=== PATIENT | female | born 1995 | race Two or more races ===

== ENCOUNTER 2017-04-10 03:09 | Inpatient (IN) | payer SELFPAY ==
[2017-04-10] VITALS (9 sets, daily range): BP systolic 106–139; BP diastolic 54–87; Ht 157.5 cm; Wt 66.7 kg
[~2017-04-10] VITALS: Ht 157.5 cm; Wt 66.7 kg
[~2017-04-10 03:09] MED LIST: ACETAMINOPHEN325 MG PO; HYDROCODON-ACE1 EAC7 PO; HYDROCODONE-APA1 TAB PO; IBUPROFEN600 MG PO; PRENATAL COMPLE1 TAB PO
[2017-04-10 03:34] LABS: HEMOGLOBIN 10.4 g/dL (12-16); MCH 28.7 pg (26.0-34.0); MCHC 32.5 g/dL (31.0-37.0); MCV 88.2 fL (80.0-100.0); MEAN PLATELET VOLUME 10.1 fL (7.4-10.4); RBC 3.63 10x6/uL (4.00-5.40); WBC 12.9 10x3/uL (4.8-10.8)
--- NOTE | 2017-04-10 05:41 | NUR ---
FUNDUS FIRM AT UMBILICUS WITH MIN LOCIA
--- NOTE | 2017-04-10 06:11 | NUR ---
RECEIVED FROM RECOVERY AWAKE AND ORIENTED. REPORT GIVEN FROM RECOVERY NURSE. PT. UNABLE TO MOVE LOWER EXTREMITIES. SCDS CONNECTED AND FUNCTIONAL. ABD. DRESSING DRY AND INTACT. LOCHIA RUBRA SCANT. PT. RATES ABD. DISCOMFORT A 6 OF 10 ON PAIN SCALE. IV OF LR WITH 20U PITOCIN ADDED HUNG AT 125CC/HR. VIA PUMP.
--- NOTE | 2017-04-10 06:17 | NUR ---
DILAUDID ELEMENTARY PRINCIPAL CONNECTED AND PT. INSTRUCTED ON USE. PT. ACTIVATES BOLUS AT THIS TIME. FOB SLEEPING ON SOFA. PT. REQUESTING ICE CHIPS. DUONG HYATT.
--- NOTE | 2017-04-10 06:35 | NUR ---
ICE CHIPS PROVIDED TO PT. ICE CAP APPLIED TO ABD. INCISION AREA. DRESSING REMAINS DRY AND INTACT. 400CC EMPTIED FROM TAYLOR CATH. METER AND BAG. PT. REQUESTING THAT THIS NURSE AWAKEN FOB FOR HER. PT. HAD CALLED NUMEROUS TIMES FOR HIM WITHOUT HIM AROUSING. FOB AWAKENED FOR PT. SHE DESIRES HER CELL PHONE. AWAKE AND ORIENTED.
--- NOTE | 2017-04-10 07:00 | NUR ---
REPORT TO A-P SHIFT.
--- NOTE | 2017-04-10 07:35 | NUR ---
PATIENT REPOSITIONED FOR COMFORT. BLUE PAPER PADS CHANGED. HER BLEEDING IS MODERATE. FUNDUS IS FIRM AND MIDLINE AT THE UMBILICUS. HER TAYLOR CATHETER IS PATENT TO THE BEDSIDE DRAINAGE BAG. SHE IS RATING HER PAIN AN 8. TORADOL GIVEN FOR INCREASED PAIN CONTROL. ROOM TEMPERATURE ADJUSTED FOR HER COMFORT. CLEAR LIQUIDS PROVIDED. NO BOWEL SOUNDS HEARD. LUNGS ARE CLEAR, HR REGULAR WITHOUT MURMUR. IVF INFUSING PER ORDERS IT PROGRAM AUDITOR IN USE. SHE DEMONSTRATES UNDERSTANDING OF USE AND STATES THAT SHE IS PRESSING IT WHEN IT LIGHTS UP GREEN. SHE VOICES CONCERN FOR FOB WELLNESS, HE IS ILL WITH PRESUMED PANCREASE TROUBLES. ADVISED THEM TO SEE A DOCTOR.
--- NOTE | 2017-04-10 08:40 | NUR ---
PATIENT IS AWAKE AND ALERT, SITTING UP IN HER BED 60 DEGREES LOOKING AT HER CELL PHONE. THE FOB IS SLEEPING ON THE COUCH AT THE BEDSIDE. SHE IS WITHOUT NEEDS. BLEEDING IS SMALL TO MODERATE. URINE PATENT TO TAYLOR CATHETER. REPORTED TO HER THE INFANTS CONDITION TOLD TO ME BY THE NURSERY NURSE. SHE WAS APPRECIATIVE. I TOOK A COUPLE OF PICTURES OF FOR HER ON HER CELL PHONE. SHE WAS VERY APPRECIATIVE. SHE IS SLOWLY DRINKING HER CLEAR LIQUIDS. DENIES NAUSEA.
--- NOTE | 2017-04-10 09:56 | NUR ---
ROLLOFF TRUCK DRIVER IN TALKING WITH THE EMOB AND FOB. NO NEEDS NOTED AT THIS TIME.
[2017-04-10 12:13] LABS: BASOPHILS 0.1 % (0-2); EOSINOPHILS 0.1 % (0-7); HEMATOCRIT 30.7 % (36.0-48.0); HEMOGLOBIN 10.1 g/dL (12-16); IMMATURE GRANULOCYTES 0.4 % (0-5); LYMPHOCYTES 13.3 % (15-50); MCH 29.1 pg (26.0-34.0); MCHC 32.9 g/dL (31.0-37.0); MCV 88.5 fL (80.0-100.0); MEAN PLATELET VOLUME 10.2 fL (7.4-10.4); MONOCYTES 6.2 % (2-11); NEUTROPHILS 79.9 % (40-80); PLATELET COUNT 240 10x3/uL (130-400); RBC 3.47 10x6/uL (4.00-5.40); WBC 10.4 10x3/uL (4.8-10.8)
--- NOTE | 2017-04-10 19:22 | NUR ---
PATIENT REPOSITIONED FOR COMFORT. PERIPADS CHANGED. HER BLEEDING REMAINS SMALL TO MODERATE. IVF INFUSING TO THE LEFT HAND. IV ABTS INITIATED. FOB AT THE BEDSIDE HE WILL BE LEAVING THIS EVENING TO WORK. MOB GIVEN CREAM OF CHICKEN SOUP. SHE HAS TAKEN IN CLEAR LIQUIDS ALL DAY WITHOUT C/O NAUSEA. CALL LIGHT IS WITHIN REACH. MONITORING.
--- NOTE | 2017-04-10 20:00 | NUR ---
ASSESSMENT AND VS COMPLETE. PT SITTING UP IN BED DRINKING APPLE JUICE. REPORTS SHE HAS BEEN SWEATING SINCE RECIEVING TORADOL FOR PAIN. ROOM TEMP LOWERED AND COOL WASHCLOTH PROVIDED. PT DENIES PASSING GAS AT THIS TIME. FUNDUS MASSAGED. FIRM AND MIDLINE 1 FB BELOW UMBILLICUS. SCANT LOCHIA WITH NO CLOTS NOTED. KYMBERLY PADS CHANGED. TAYLOR CATH IN PLACE AND DRAINING. OUTPUT NOTED. SCDs IN PLACE BILATERALLY. HOMANS SIGN NEG BILATERALLY. NO EDEMA PRESENT. DISCUSSED PAIN CONTROL OPTIONS. REPORTS PAIN IS WELL CONTROLLED WITH CURRENT MEDICATIONS. NO OTHER QUESTIONS OR CONCERNS VOICED. CALL LIGHT IN REACH. BED LOW. SR UP X2.
--- NOTE | 2017-04-10 20:30 | NUR ---
ICE WATER GIVEN REQUESTED.
--- NOTE | 2017-04-10 22:45 | NUR ---
DR. CHILEL ON UNIT. NOTIFIED THAT PT HAS ASKED IF SHE CAN START AMBULATING AND HAVE TAYLOR DC'D AND IV SALINE LOCKED. DR. CHILEL STATES YES. NEW ORDERS TO [facility] [employer].
--- NOTE | 2017-04-10 22:56 | NUR ---
PT NB AT THIS TIME. WILL CALL WHEN DONE FOR TAYLOR REMOVAL AND IVF REMOVAL.
--- NOTE | 2017-04-11 00:12 | NUR ---
TAYLOR CATH D/C'D WITH CATH TIP INTACT. PT CLEANED UP. SMALL LOCHIA RUBRA NOTED WITH NO CLOTS. FUNDUS REMAINS FIRM. CLEAN PERIPADS PLACED. PIV SL AT THIS TIME. SANDWICH TRAY PROVIDED PER PT REQUEST. PT DENIES PAIN OR FURTHER NEEDS CURRENTLY. ADV PT TO CALL WHEN SHE FEELS THE URGE TO VOID FOR ASSISTANCE. PT VERBALIZED UNDERSTANDING.
--- NOTE | 2017-04-11 02:00 | NUR ---
RN to room to administer medications. Pt requesting prn pain med. See EMAR for digital media specialist. Pt resting with eyes closed while nurse in room. Denies any other needs or concerns. Instructed to call for assistance with ambulating. Denies urge to void at this time. Lights dimmed. Call light in reach. Bed low. SR upx2.
--- NOTE | 2017-04-11 02:47 | NUR ---
Pt holding NB in arms. Denies pain or discomfort. No needs voiced.
--- NOTE | 2017-04-11 03:55 | NUR ---
Pt resting with eyes closed. C/L in reach. Bed low. SR upx2.
--- NOTE | 2017-04-11 04:00 | NUR ---
IV saline locked.
--- NOTE | 2017-04-11 04:15 | NUR ---
Pt assisted up to bathroom with slow steady gait. Pt voided 200 ml clear yellow urine without difficulty. Abilio care performed. Given/explained abilio pads and mesh panties. Pt washed hands and ambulated back to bed. Blue underpads changed. Pt back into bed. Call light in reach. Bed low. SR upx2. Fresh ice water provided.
--- NOTE | 2017-04-11 04:44 | NUR ---
PRN PAIN MED ADMINISTERED REQUESTED. SEE EMAR.
[2017-04-11 04:45] VITALS: BP 104/57
--- NOTE | 2017-04-11 04:55 | NUR ---
QUARRY EXTRACTION WORKER DC'D. WASTED 4MG DILAUDED QUARRY EXTRACTION WORKER MEDICATION IN [facility] WITH WITTNESS.
--- NOTE | 2017-04-11 06:00 | NUR ---
Pt resting with eyes closed. No needs observed. C/L in reach. Bed low. SR upx2.
[2017-04-11 06:15] LABS: RAPID PLASMA REAGIN Non Reactive (Non Reactive)
[2017-04-11 06:42] LABS: BASOPHILS 0.1 % (0-2); EOSINOPHILS 0.4 % (0-7); HEMATOCRIT 27.8 % (36.0-48.0); HEMOGLOBIN 8.9 g/dL (12-16); IMMATURE GRANULOCYTES 0.5 % (0-5); LYMPHOCYTES 13.5 % (15-50); MCH 28.7 pg (26.0-34.0); MCV 89.7 fL (80.0-100.0); MEAN PLATELET VOLUME 10.1 fL (7.4-10.4); NEUTROPHILS 79.5 % (40-80); PLATELET COUNT 237 10x3/uL (130-400); RDW 14.4 % (11.5-14.5); WBC 10.6 10x3/uL (4.8-10.8)
--- NOTE | 2017-04-11 07:10 | NUR ---
THIS RN TO BEDSIDE FOR SHIFT ASSESSMENT. PT CURRENTLY LYING AWAKE IN BED WATCHING TV. PAIN AND NEEDS ASSESSED. PT REPORTS ABD PRESSURE/BLOATING AND INCISIONAL PAIN THAT SHE RATES 7/10. TEACHING PROVIDED IN REGARDS TO AMBUALTING TO RELIEVE BLOATING PAIN AND VOIDING EVERY 2 HRS TO DECREASE LOWER ABD PAIN. PT RECEPTIVE TO TEACHING. V/S STABLE. SEE FLOWSHEET. SALINE LOCK TO LEFT FOREARM. BREATH SOUNDS CL\=, ABD,TENDER TO TOUCH, MILD DISTENTION NOTED. PT DENIES PASSING FLATUS OF YET. LOW TRANSVERSE INCISION C/D/I W/DRESSING. SMALL LOCHIA RERPORTED. PEDAL PULSES PRESENT X 2. NO EDEMA NOTED TO LOWER EXTREMITIES. NORCO OFFERED. PT REQUEST TO WAIT UNTIL SHE HAS HAD BREAKFAST. TRASH REMOVED FROM ROOM. PT INFORMED THAT HOUSEKEEPING WILL BE TO PT'S ROOM TO MOP THE FLOOR. NEEDS REASSESSED. PT REQUEST CHICKEN BROTH. CHICKEN BROTH SERVED. PT DENIES FURTHER NEEDS AT THIS TIME.
[2017-04-11 07:13] VITALS: BP 100/56
--- NOTE | 2017-04-11 07:30 | NUR ---
BREAKFAST TRAY SERVED.
--- NOTE | 2017-04-11 08:00 | NUR ---
ROUNDS MADE. PT REMAINS IN BED AA&O X4 WATCHING TV. PT HAS FINISHED EATING HER BREAKFAST. PAIN MEDICATION OFFERED. PT ACCEPTS. NORCO10/325MG ONE TAB GIVEN. PT ENCOURAGED TO GET UP TO VOID. PT OOB W/OUT ASSISTANCE. AMBULTORY TO BR. VOIDS 300ML. PINK PAD PLACED W/CHUX ON BED. PT RETURNS TO BED. DENIES FURTHER NEEDS. BREAKFAST TRAY REMOVED FROM ROOM. BED LOW, SIDE RAILS UP X 2. CALL LIGHT AND PHONES AT PT'S SIDE.
--- NOTE | 2017-04-11 08:18 | NUR ---
INFANT TO ROOM AT THIS TIME.
--- NOTE | 2017-04-11 08:19 | NUR ---
DR CHILEL ON UNIT.
--- NOTE | 2017-04-11 08:59 | NUR ---
ROUNDS MADE. PT AWAKE IN BED VISITING W/GUEST. PAIN AND NEEDS ASSESSED. PT REPORTS PAIN 01/02. DENIES NEEDS AT PRESENT.
--- NOTE | 2017-04-11 10:00 | NUR ---
this rn to bedside antibiotic administration per md orders. iv site flushed w/5ml ns. site wnl. primary line reconnected to iv site. primary set to 25ml/hr. merrrem 1gm ivpb initiated at 200ml/hr to infuse over 30mins. pt denies needs at present.
--- NOTE | 2017-04-11 10:25 | NUR ---
nbn nurse reports pt's iv site needs assessment. this rn to bedside. pt's iv site to left hand swollen. iv site has infiltrated. iv infusion stopped. iv dc'd intact. bandaid placed oversite. iv restarted to rt forearm w/ guage cath. primary line restarted at 25ml/hr. ivpb restarted at 200ml/hr. site w/out redness or swelling.
--- NOTE | 2017-04-11 10:50 | NUR ---
IVPB COMPLETED. IV SITE SALINE LOCKED. PT HOLDING AT THIS TIME. REPORTS INFANT HAS COMPLETED FEEDING. PT TO BE TRANSFERED TO [facility] SO BILI LIGHTS MAY BE PLACED IN PT'S ROOM FOR BILI LIGHT THERAPY.
--- NOTE | 2017-04-11 11:15 | NUR ---
PT TRANSFERED AMBULATORY TO [facility]. ORIENTED TO ROOM,PHONE AND CALL LIGHT. SIG OTHER IN ROOM W/PT. INFANT PLACED UNDER BILI LIGHTS PER G DANIAL,RN NBN NURSE.
[2017-04-11 11:30] VITALS: BP 106/59
--- NOTE | 2017-04-11 12:50 | NUR ---
Godwin BARROW RN TO ROOM TO CHECK ON BABY.WHILE AT BEDSIDE, PT'S PAIN AND NEEDS ASSESSED PER Godwin BARROW RN. PT DENIES NEEDS. FACE SCALE USED FOR PAIN ASSESSMENT. 01/02. NO PAIN INTERVENTIONS REQUESTED AT THIS TIME.
--- NOTE | 2017-04-11 14:00 | NUR ---
ROUNDS MADE. PT SITTING UP IN BED AWAKE WATCHING TV. RATES PAIN 01/02. DENIES NEEDS AT PRESENT. DECLINES OFFERS TO BRING HER ANYTHING TO EAT OR DRINK. PT DENIES BEING UP TO VOID SINCE TRANSFER. PT ENCOURAGED TO GET UP TO VOID AT THIS TIME. PT CONTINUES TO DENY PASSING FLATUS OF YET.
--- NOTE | 2017-04-11 15:57 | NUR ---
ROUNDS MADE. PT LYING AWAKE IN BED WATCHING TV. SMILING AND CHEERFUL. REPORTS SHE HAS BEEN ABLE TO PASS GAS. PAIN AND NEEDS ASSESSED. PT REPORTS PAIN 01/02. DECLINES OFFERS TO BRING HER ANY THING TO EAT OR DRINK AT THIS TIME. RETURNED TO ROOM AT THIS TIME PER NBN NURSE TO REMAIN UNDER BILI LIGHTS. DENIES NEEDING PAIN MEDICATION AT THIS TIME.
--- NOTE | 2017-04-11 17:27 | NUR ---
PT RINGS CALL LIGHT. THIS RN TO ROOM. PT NOW REQUESTING PAIN MEDICATION FOR INCISIONAL PAIN 06/04. NORCO 10/325MG ONE TAB GIVEN. PT HAS DINNER TRAY AND A DRINK. NO ADDITIONAL NEEDS VOICED AT THIS TIME. SIG OTHER AT BEDSIDE.
--- NOTE | 2017-04-11 17:50 | NUR ---
THIS RN TO BEDSIDE. SALINE LOCK FLUSHED W/5ML NS. SITE WNL W/OUT REDNESS OR SWELLING. PRIMARY LINE CONNECTED TO PUMP. RATE SET AT 25ML/HR. IVPB ANTIBIOTICS OF MERREM 1GM UP TO INFUSE AT 200ML/HR. PT CONTINUES TO RATE PAIN 06/04. PT ENCOURAGED TO GET UP TO SHOWER SOON AND WALK HALLS TO HELP W/GAS PAIN. PT IS AGREEBLE. SIG OTHER PLACES INFANT IN PT'S ARMS BEFORE LEAVING THE ROOM. NO FURTHER NEEDS VOICED AT THIS TIME.
--- NOTE | 2017-04-11 18:31 | NUR ---
ROUNDS MADE. PT SITTING UP IN BED CHANGING INFANTS DIAPER. PT SMILING AND CHEERFUL. ANTIBIOTICS STILL INFUSING. NO NEEDS VOICED AT THIS TIME.
--- NOTE | 2017-04-11 19:10 | NUR ---
PT SITTING UP IN BED FINISHING TRAY FROM DINNER. DENIES PAIN OR DISCOMFORT. REPORTS PRN PAIN MEDICATION WORKING WELL TO CONTROL PAIN. ASSESSMENT COMPLETE AND VS OBTAINED. IV SALINE LOCKED. IV PATENT. NO S/S INFILTRATION. ENCOURAGED PT TO SHOWER AND AMBULATE AFTER SHOWER. PT VERBALIZES UNDERSTANDING. S/O PRESENT IN ROOM. CALL LIGHT IN REACH. BED LOW. SR UPX2. NO FURTHER NEEDS VOICED.
[2017-04-11 19:12] VITALS: BP 117/67
--- NOTE | 2017-04-11 19:26 | NUR ---
PT IN SHOWER WITH ASSISTANCE OF S/O.
--- NOTE | 2017-04-11 21:49 | NUR ---
Pt request prn pain med for cramping and incisional pain. See EMAR for occupational medicine specialist. Denies any other needs or cocnerns. Reports vag bleeding scant and denies clots.
--- NOTE | 2017-04-11 23:30 | NUR ---
Called to room per pt. Pt finished pumping and has EBM prepared to take to [facility]. No other needs voiced.
--- NOTE | 2017-04-12 01:00 | NUR ---
Ice and cola provided per request.
--- NOTE | 2017-04-12 01:08 | NUR ---
Pt sitting up in bed attempting to breastfeed NB. Medications administered. See EMAR. IV flushes easily. Site patent. No pain/redness/edema to site. Pt continues to report scant lochia. Abd incision unchanged from assessment. Pt reports pain medication effective. Denies any other needs or concerns.
--- NOTE | 2017-04-12 02:15 | NUR ---
IV saline locked.
--- NOTE | 2017-04-12 04:13 | NUR ---
Pt resting with eyes closed. No needs identified. C/L in reach. Bed low. SR upx2.
--- NOTE | 2017-04-12 04:58 | NUR ---
Pt requesting prn pain med. See EMAR. VS obtained. Provided pt with mary per request. Fundus firm and midline 1FB below umbillicus. Scant lochia. Incision well approximated. No s/s infection. Barnum intact. No other needs or concerns voiced. C/L in reach. Bed low. SR upx2.
[2017-04-12 05:00] VITALS: BP 112/59
--- NOTE | 2017-04-12 06:00 | NUR ---
Pt resting with eyes closed.
[2017-04-12 08:05] VITALS: BP 106/60
--- NOTE | 2017-04-12 08:11 | NUR ---
UPON ENTERING ROOM PT IS SITTING UP EATING HER BREAKFAST, DENIES PAIN OR DISCOMFORT AT THIS TIME. ALSO DENIES ANY QUESTIONS OR CONCERNS. INCISION IS CLEAN AND DRY, FUNDUS FIRM AT U/U WITH LIGHT BLEEDING AND PT DENIES ANY CLOTS WITH HER VOIDS. SIDE RAILS UP X 2 WITH PHONE AND CALL LIGHT IN REACH.
--- NOTE | 2017-04-12 10:30 | NUR ---
PT SITTING UP IN BED WITH TO BREAST, DENIES PAIN OR DISCOMFORT. MEROPENEM 1GRAM INFUSING IVPB PER ORDERS, PRIOR TO STARTING ANTIBIOTIC SALINE LOCK FLUSHED EASILY WITH 3ML NS. LARGE CUP OF ICE WATER PROVIDED PER PT REQUEST.
--- NOTE | 2017-04-12 11:05 | NUR ---
IV MEDS COMPLETED, NO MORE IV MEDICATIONS ORDERED, VERIIFED WITH MD PRIOR TO REMOVING SALINE LOCK. REMOVED AT THIS TIME INTACT. PT DENIES ANY NEEDS FOR NURSE. CALL LIGHT WITH IN HER REACH WITH SIDE RAILS UP X 2.
--- NOTE | 2017-04-12 14:18 | NUR ---
PT BONDING WITH INFANT, RATES PAIN/CRAMPING AT 5/10 AND REQUEST MOTRIN ONLY AT THIS TIME CHARTED ON EMAR. STATES UNDERSTANDING THAT WILL NOT BE DISCHARGED UNTIL 7 DAYS OF ANTIBIOTICS HAVE COMPLETED. ROOMING IN INFO GIVEN FOR HER TO READ OVER, ALSO WILL LET NURSE KNOW WHEN SIG OTHER RETURNS SO THAT HER SCRIPTS CAN BE TAKEN TO PHARMACY. SIDE RAILS UP X 2 WITH PHONE AND CALL LIGHT WITH IN HER REACH.
--- NOTE | 2017-04-12 16:00 | NUR ---
CALLED TO ROOM, PT STATES THAT SIG OTHER IS HERE AND REQUEST SCRIPTS TO BE GIVEN TO HIM. PROVIDED WITH WRITTEN SCRIPTS FOR NORCO 10/325MG, MOTRIN 600MG AND AUGMENTIN. PT DENIES PAIN OR DISCOMFORT AT THIS TIME AND VOICES NO NEEDS FOR NURSE. CALL LIGHT IN REACH WITH SIDE RAILS UP X 2.
--- NOTE | 2017-04-12 17:30 | NUR ---
LARGE ICE WATER TAKEN TO ROOM PER REQUEST. IN CRIB AT BEDSIDE. NO OTHER NEEDS AT THIS TIME.
--- NOTE | 2017-04-12 18:34 | NUR ---
SITTING UP IN BED HOLDING . REGULAR DIET AT BEDSIDE. DENIES NEEDING ANYTHING AT THIS TIME. CALL LIGHT IN REACH. TO CALL IF ANYTHING IS NEEDED.
[2017-04-12 19:07] VITALS: BP 118/73
--- NOTE | 2017-04-12 19:07 | NUR ---
PT. LYING ON BACK WITH EYES CLOSED. RESPIRATIONS REGULAR. INFANT SLEEPING AND LYING IN BED BESIDE PT. PT. AWAKENED FOR ASSESSMENT. SKIN WARM AND DRY. FUNDUS FIRM AND LOCHIA RUBRA SCANT. PT. STATES WHEN HER FOB RETURNS TO HOSPITAL SHE WILL START "ROOMING IN".DENIES ANY BOWEL MOVEMENT. INSTRUCTED PT. ON RECOMMENDATION FOR MILK OF MAGNESIA IF NEEDED. PT. STATED UNDERSTANDING. DENIES ANY PAIN IN LEGS. BREATH SOUNDS CLEAR AND BOWEL SOUNDS AUDIBLE.
--- NOTE | 2017-04-12 19:39 | NUR ---
PT. ASLEEP AGAIN AND REMAINS IN BED BESIDE PT. AWAKENED PT. AND ASKED IF THIS NURSE COULD PUT INFANT IN OPEN CRIB. INFORMED PT. THAT SLEEPING IN BED WITH IS DISCOURAGED DUE TO SAFETY CONCERNS. PT. STATED UNDERSTANDING. OFFER TO TAKE TO NBN UNTIL SHE AWAKENS AND PT. AGREEABLE. LIGHTS IN ROOM DIMMED.
--- NOTE | 2017-04-12 21:44 | NUR ---
PT. CALLS AND REPORTS THAT HER SCRIPTS HAVE BEEN DELIVERED TO HER. DISCHARGE INSTRUCTIONS GIVEN TO PT. AND PT. STATES UNDERSTANDING TO ALL. COPIES OF ALL INFORMATION LEFT WITH PT. PT. ALSO HAS DRUG INFORMATION FROM [facility] ON ALL MEDS FILLED. FOB STATES HE WILL GET IBUPROFEN TOMORROW. SHE CURRENTLY HAS PCN SCRIPT AND NORCO. TRASH EMPTIED IN ROOM. PT. SIGNED ROOMING IN PAPERWORK EARLIER IN DAY AND STATES AWARENESS OF POLICY. AGAIN INFORMED THAT MEALS WOULD BE PROVIDED TO HER, ALTHOUGH HER ROOM ASSIGNMENT COULD CHANGE IN AM. PT.STATES UNDERSTANDING.
--- NOTE | 2017-04-14 13:13 | OP ---
PATIENT NAME: GRANT DOLAN MEDICAL RECORD: [id number] :[birth year] LOCATION:[id number] ADMISSION DATE:04/10/17 SURGEON: DERRICK AVILEZ MD DATE OF OPERATION: 04/10/2017 PREOPERATIVE DIAGNOSES: 1. Intrauterine at 36 weeks in active labor. 2. History of previous section. POSTOPERATIVE DIAGNOSES: 1. Intrauterine at 36 weeks in active labor. 2. History of previous section. 3. Suspected chorioamnionitis. PROCEDURE: Repeat low transverse section. SURGEON: Derrick Avilez MD. ESTIMATED BLOOD LOSS: 1000 cc. INTRAVENOUS FLUIDS: Per anesthesia records. SPECIMENS: Placenta and cord for gases. FINDINGS: 1. Viable infant, Apgars 9 at 1 and 9 at 5. 2. Foul smelling, but clear amniotic fluid. 3. Grossly normal adnexa bilaterally. 4. Placenta delivered manually intact, 3-vessel cord noted. COMPLICATIONS: None apparent. PROCEDURE: The patient taken to the operating room where spinal anesthesia was achieved without difficulty. The patient was prepped and draped in normal sterile fashion in the dorsal supine position. Anderson catheter in place and was draining freely and SCDs were functioning normally. At this point, a repeat Pfannenstiel skin incision was made, extended downward to the underlying subcutaneous fat to level of the fascia, which was then excised in the midline and the fascial incision was then extended bilaterally using the Duke scissors. The superior and inferior aspects of the fascial incision were then grasped with Jun clamps times 2, tented upward, and sharply dissected from the underlying rectus muscle. Rectus muscles were then bluntly in the midline and the peritoneum entered sharply using the Metzenbaum scissors. The dissection of the peritoneum was performed carefully using the Metzenbaum scissors. The bladder blade was then placed into the pelvis and a low transverse incision was made, extended superiorly and inferiorly using the Pelosi method. At this point, the 's head was delivered atraumatically followed by the body. Infant was bulb suctioned upon delivery. Cord was clamped times 2, cut, and the was handed to the awaiting nursery team. Cord was then obtained for gases. The uterus was entered and the placenta was then removed manually intact, 3-vessel cord was noted. The uterus was exteriorized and cleared of all clots and debris. Uterine incision was repaired with 0 Vicryl in a running locked fashion times 2. Posterior cul-de-sac was then thoroughly irrigated and the uterus was replaced into the pelvis. Anterior cul-de-sac was then thoroughly irrigated and the uterine incision was noted to be hemostatic. OPERATIVE REPORT [id number] GRANT DOLAN Counts were correct times 2. The fascia was repaired with 0 loop PDS times 1 and the skin repaired with michelle. The patient tolerated the procedure well, transferred to postanesthesia recovery stable without incident. TRANSINT:[id number] Voice Confirmation ID: [id number] DOCUMENT ID: [id number] DERRICK AVILEZ MD at 1311 CC: [id number] DICTATION DATE: 04/10/17 2338 PROJECT ENGINEER CHEMICALS: 04/11/17 0603 ADM IN [facility] [address] [place] [address]
== END 2017-04-12 21:50 | disposition home or self-care (01) | DRG 765 ==
LOC: D.LD 03:09
PROVIDERS: ADMIT Obstetrics & Gynecology
PROC: 10D00Z1 Extraction of Products of Conception, Low, Open Approach (ICD-10-PCS; principal; 2017-04-10 04:14)
DX: O99.824 Streptococcus B carrier state complicating childbirth (principal); O41.1230 Chorioamnionitis, third trimester, not applicable or unspecified; O98.82 Other maternal infectious and parasitic diseases complicating childbirth; Z3A.36 36 weeks gestation of pregnancy; Z37.0 Single live birth; O34.219 Maternal care for unspecified type scar from previous cesarean delivery; O99.334 Smoking (tobacco) complicating childbirth

== ENCOUNTER 2019-11-02 09:54 | Emergency (ER) | payer SELFPAY ==
[~2019-11-02] VITALS: Ht 157.5 cm; Wt 65.9 kg
[2019-11-02 10:18] VITALS: Ht 157.5 cm; Wt 65.9 kg
[2019-11-02] MEDS ORDERED: STERAPRED 5MG 65 M1 PO (10:22)
[2019-11-02] MEDS ORDERED: CLEOCIN HCL300 MG PO ×2 (10:22→12:54)
[2019-11-02] MEDS ORDERED: ULTRAM50 MG PO (10:23)
[2019-11-02 13:15] VITALS: BP 125/74
== END 2019-11-02 13:16 | disposition home or self-care (01) ==
LOC: D.ER 09:54
DX: N75.0 Cyst of Bartholin's gland (principal)

== ENCOUNTER 2019-11-14 20:31 | Inpatient (IN) | payer SELFPAY ==
[~2019-11-14] VITALS: Ht 157.5 cm; Wt 65.8 kg
[~2019-11-14 20:31] MED LIST changes: +CLEOCIN HCL300 MG PO; +STERAPRED 5MG 65 M1 PO; +ULTRAM50 MG PO
[2019-11-14 21:34] LABS: BASOPHILS 0.2 % (0-2); EOSINOPHILS 1.3 % (0-7); HEMATOCRIT 39.8 % (36.0-48.0); HEMOGLOBIN 13.3 g/dL (12-16); IMMATURE GRANULOCYTES 0.3 % (0-5); LYMPHOCYTES 18.4 % (15-50); MCH 31.3 pg (26.0-34.0); MCHC 33.4 g/dL (31.0-37.0); MCV 93.6 fL (80.0-100.0); MEAN PLATELET VOLUME 9.8 fL (7.4-10.4); MONOCYTES 7.5 % (2-11); NEUTROPHILS 72.3 % (40-80); RBC 4.25 10x6/uL (4.00-5.40); RDW 12.9 % (11.5-14.5); WBC 11.3 10x3/uL (4.8-10.8)
[2019-11-14 21:40] LABS: CALC OSMOLALITY 276 mosm/kg (275-300); CALCIUM 8.3 mg/dL (8.5-10.1); CARBON DIOXIDE 30.6 mmol/L (21.0-32.0); CHLORIDE - SERUM 103 mmol/L (98-107); CREATININE - SERUM 0.7 mg/dL (0.6-1.3); GLUCOSE 91 mg/dL (74-106); POTASSIUM - SERUM 3.6 mmol/L (3.5-5.1); SODIUM 139 mmol/L (136-145); UREA NITROGEN 11 mg/dL (7-18); eGFR NON AFRICAN AMERICAN > 90 mL/min (90-120)
[2019-11-14 21:46] LABS: ALBUMIN 3.5 g/dL (3.4-5.0); ALKALINE PHOSPHATASE 95 U/L (46-116); ALT (SGPT) 26 U/L (10-68); BILIRUBIN - TOTAL 0.53 mg/dL (0.2-1.3); MAGNESIUM - SERUM 2.1 mg/dL (1.8-2.4); PLATELET COUNT 287 10x3/uL (130-400); PROTEIN - SERUM 8.1 g/dL (6.4-8.2)
[2019-11-14 22:07] LABS: APPEARANCE HAZY (CLEAR); BILIRUBIN NEGATIVE (NEGATIVE); COLOR YELLOW (YELLOW); GLUCOSE NEGATIVE (NEGATIVE); KETONE NEGATIVE (NEGATIVE); NITRITE NEGATIVE (NEGATIVE); PROTEIN 1+ mg/dL (NEGATIVE); UROBILINOGEN NORMAL (NORMAL)
[2019-11-14 22:08] LABS: RED CELLS - URINE 0-5 /hpf (0-5); WHITE CELLS - URINE >50 /hpf (NEGATIVE)
[2019-11-14 22:09] LABS: BACTERIA MODERATE /hpf (NEGATIVE); EPITHELIAL CELLS 0-5 /hpf (0-5)
[2019-11-14 22:29] VITALS: BP 108/62
[2019-11-15 00:34] VITALS: BP 117/63; BMI 26.6
[2019-11-15 04:22] VITALS: BP 97/60
--- NOTE | 2019-11-15 07:39 | NUR ---
AWAKE AND ALERT. ORIENTED X3. NO C/O AT THIS TIME. LUNGS ARE CLEAR BILATERALLY, NO COUGH NOTED. SKIN IS INTACT WITHOUT REDNESS EXCEPT WOUND TO LABIA. WILL MONITOR. IV TO RIGHT AC IS PATENT WITHOUT REDNESS AT INSERTION SITE. SITTING UP IN BED EATING BREAKFAST. DENIES NEEDS.
[2019-11-15 08:06] VITALS: BP 100/59
--- NOTE | 2019-11-15 09:30 | NUR ---
ATE MOST OF BREAKFAST. UP TO SHOWER WITH SET UP ASSISTANCE. DENIES NEEDS.
[2019-11-15 09:54] VITALS: Ht 157.5 cm; Wt 65.8 kg
[2019-11-15 12:12] VITALS: BP 92/62
[2019-11-15] MEDS ORDERED: TYLENOL W/CODEI1 TAB PO (14:10)
--- NOTE | 2019-11-15 15:32 | NUR ---
DISCHARGED TO HOME AMBULATORY. ALL BELONGINGS WITH PATIENT.
--- NOTE | 2019-11-15 17:03 | MORECARE ---
CASE MANAGEMENT DISCHARGE SUMMARY PATIENT: GRANT DOLAN UNIT: [id number] ADM DATE: 11/14/19 AGE: 24 : [birth year] SEX: F ROOM/BED: D.1213 AUTHOR: ADRIAN SCHUMACHER PHYSICIAN: REFERRING PHYSICIAN: JUAN M VINES MD DATE OF SERVICE: 11/15/19 Discharge Plan Patient Name: GRANT DOLAN Facility: [facility]:[place] : 1995 Planned Disposition: Home Anticipated Discharge Date: Discharge Date: 11/15/2019 Expected LOS: Initial Reviewer: [email or web address] Initial Review Date: 11/15/2019 Generated: 11/15/19 6:03 pm DCPIA - Discharge Planning Initial Assessment Updated by [email or web address]: Jane Jason on 11/15/19 4:56 pm * Is the patient Alert and Oriented? Yes * How many steps to enter\exit or inside your home? * PCP NO PCP * Pharmacy [facility] * Preadmission Environment Home with Family * ADLs Independent * Equipment None * Verbal permission to speak to the caregivers and representatives has been obtained from the patient. Yes * Community resources currently utilized None * Additional services required to return to the preadmission environment? No * Can the patient safely return to the preadmission environment? Yes * Has this patient been hospitalized within the prior 30 days at any hospital? No Patient Name: GRANT DOLAN Page [id number] at 1703 All edits/amendments must be made on the electronic document DICTATION DATE: 11/15/191702 STEWARD/STEWARDESS [employer] CLASS: ALEXX 11/15/19 170 RPT#: [id number] DC DATE:11/15/19 STATUS: DIS IN [facility] [address] [place] [address] END OF REPORT
--- NOTE | 2019-11-15 17:20 | MORECARE ---
CASE MANAGEMENT DISCHARGE SUMMARY PATIENT: GRANT DOLAN UNIT: [id number] ADM DATE: 11/14/19 AGE: 24 : [birth year] SEX: F ROOM/BED: D.1213 AUTHOR: ENDY,DOC PHYSICIAN: REFERRING PHYSICIAN: AAMIR VINES MD DATE OF SERVICE: 11/15/19 Discharge Plan Patient Name: GRANT DOLAN Facility: [facility]:[place] : 1995 Planned Disposition: Home Anticipated Discharge Date: Discharge Date: 11/15/2019 Expected LOS: Initial Reviewer: [email or web address] Initial Review Date: 11/15/2019 Generated: 11/15/19 6:19 pm Comments DCP- Discharge Planning Updated by [email or web address]: Jane Jason on 11/15/19 4:[address] Patient Name: GRANT PADILLA Admission Status: ER Accout number: [id number] Admission Date: 11-14-2019 : 1995 Admission Diagnosis: Attending: Aamir Vines Current LOS: 1 Anticipated DC Date: Planned Disposition: Home Primary Insurance: UNINSURED DISCOUNT PLAN Discharge Planning Comments: CM met with patient to complete initial dc planning assessment. CM educated patient on the CM role and verbal consent given by patient to complete assessment. Patient lives at home with her family where she is independent with her care. At discharge patient plans to return home and feels this is a safe discharge. CM discussed availability of home health, rehab services, and medical equipment. She will have her family drive her home. Patient is uninsured CM looked up medications on [facility] to check cost to see if she could afford medications. Cost of all medications with [facility] card is approximately $50.00. Patient stated that she could afford to get medications. Good RX card given. Patient denied known discharge needs at this time. CM will continue to follow and will assist as needed with dc plans/needs. Pinmaker: Jane Jason DCPIA - Discharge Planning Initial Assessment Updated by [email or web address]: Jane Jason on 11/15/19 4:56 pm * Is the patient Alert and Oriented? Yes * How many steps to enter\exit or inside your home? * PCP NO PCP * Pharmacy [facility] * Preadmission Environment Home with Family * ADLs Independent * Equipment None * Verbal permission to speak to the caregivers and representatives has been obtained from the patient. Yes * Community resources currently utilized None * Additional services required to return to the preadmission environment? No * Can the patient safely return to the preadmission environment? Yes * Has this patient been hospitalized within the prior 30 days at any hospital? No Last DP export: 11/15/19 4:03 p Patient Name: GRANT DOLAN Page [phone] at 1720 All edits/amendments must be made on the electronic document DICTATION DATE: 11/15/191718 MENTAL RETARDATION NURSE: ALEXX 11/15/191718 RPT#: [id number] DC DATE:11/15/19 STATUS: DIS IN [facility] [address] [place] [address] END OF REPORT
== END 2019-11-15 15:33 | disposition home or self-care (01) | DRG 760 ==
LOC: D.ER 20:31 → D.M3 23:03
PROVIDERS: Emergency Medicine; ADMIT Obstetrics & Gynecology; ATTEND Obstetrics & Gynecology
DX: N75.0 Cyst of Bartholin's gland (principal); N39.0 Urinary tract infection, site not specified